=== PATIENT | female | born 1970 | race Caucasian/White ===

== ENCOUNTER 2017-06-28 08:50 | Inpatient (IN) | payer OTHER ==
[2017-06-28 10:11] VITALS: BMI 24.0
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
[2017-06-28] MEDS ORDERED: hydrOXYzine PAMOATE 50 MG CAPSULE (FP) PO PRN (11:46)
[2017-06-28] MEDS ORDERED: MAGNESIUM CITRATE 300 ML BOTTLE PO PRN (11:46)
[2017-06-28] MEDS ORDERED: P-EPHED 60MG/TRIPROLIDI 2.5MG TABLET PO PRN (11:46)
[2017-06-28] MEDS ORDERED: MENTHOL/PHENOL 1 EACH UD MM PRN (11:46)
[2017-06-28] MEDS ORDERED: guaiFENesin/D-METHORPHAN HB 10 ML UNIT-DOSE CUPS PO PRN (11:46)
[2017-06-28] MEDS ORDERED: ACETAMINOPHEN 325 MG TABLET (FP) PO PRN (11:46)
[2017-06-28] MEDS ORDERED: IBUPROFEN 400 MG TABLET (FP) PO PRN (11:46)
[2017-06-28] MEDS ORDERED: LOPERAMIDE HCL 2 MG CAPSULE PO PRN (11:46)
[2017-06-28] MEDS ORDERED: MAG HYDROX/AL HYDROX/SIMETH 30 ML UNIT-DOSE CUP PO PRN (11:46)
[2017-06-28] MEDS ORDERED: MAGNESIUM HYDROX 2400MG/30ML ORAL SUSPENSION 30 ML CUP PO PRN (11:46)
[2017-06-28] MEDS ORDERED: ALBUTEROL SO4 18 GM HFA INHALER IH PRN (11:49)
[2017-06-28 13:14] LABS: HEMATOCRIT 44.2 % (32.4-45.2); HEMOGLOBIN 14.6 GM/dL (10.7-15.3); MCH 30.2 pg (25.7-33.7); MCHC 33.1 g/dl (32.0-36.0); MEAN CELL VOLUME 91.4 fl (80-96); MEAN PLT VOLUME 9.1 fl (7.5-11.1); PLATELET COUNT 255 K/MM3 (134-434); RBC 4.84 M/mm3 (3.60-5.2); RDW 14.3 % (11.6-15.6); WHITE BLOOD COUNT 2.9 K/mm3 (4.0-10.0)
[2017-06-28 13:30] LABS: ANION GAP 11 (8-16); BILIRUBIN,TOTAL 0.3 mg/dL (0.2-1.0); BLOOD UREA NITROGEN 14 mg/dL (7-18); CALCIUM 8.8 mg/dL (8.5-10.1); CHLORIDE 102 mmol/L (98-107); CO2 27 mmol/L (21-32); CREATININE 0.8 mg/dL (0.55-1.02); GLUCOSE,RANDOM 69 mg/dL (74-106); POTASSIUM 4.3 mmol/L (3.5-5.1); SGOT/AST 17 U/L (15-37); SGPT/ALT 23 U/L (12-78); SODIUM 140 mmol/L (136-145); TOT PROT 7.6 g/dl (6.4-8.2)
[2017-06-28 13:31] LABS: ALK PHOS 58 U/L (45-117)
[2017-06-28 13:39] LABS: SICKLE CELL SCREEN NEGATIVE (NEGATIVE)
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
[2017-06-28] MEDS: BACITRACIN 0.9 GM PACKET TP SCH ×2 (14:11→21:33)
--- NOTE | 2017-06-28 15:04 | EKG ---
Test Reason : Blood Pressure : / mmHG Vent. Rate : 072 BPM Atrial Rate : 072 BPM P-R Int : 134 ms QRS Dur : 082 ms QT Int : 400 ms P-R-T Axes : 055 052 044 degrees QTc Int : 438 ms NORMAL SINUS RHYTHM SEPTAL INFARCT , AGE UNDETERMINED ABNORMAL ECG NO PREVIOUS ECGS AVAILABLE Confirmed by VÍCTOR TSE MD ([id number]) on 06/28/2017 3:03:49 PM Referred By: Confirmed By:VÍCTOR TSE MD
[2017-06-28 21:16] LABS: URINE APPEARANCE CLEAR; URINE BILIRUBIN NEGATIVE (NEGATIVE); URINE BLOOD NEGATIVE (NEGATIVE); URINE COLOR LTYELLOW; URINE GLUCOSE (UA) NEGATIVE (NEGATIVE); URINE KETONE NEGATIVE (NEGATIVE); URINE LEUK ESTERASE NEGATIVE (NEGATIVE); URINE NITRITE NEGATIVE (NEGATIVE); URINE PROTEIN NEGATIVE (NEGATIVE); URINE UROBILINOGEN NEGATIVE mg/dL (0.2-1.0)
[2017-06-28] MEDS: OLANZapine 5 MG TABLET PO SCH (21:33)
[2017-06-28] MEDS: THIAMINE HCL 100 MG TABLET (FP) PO SCH (21:33)
[2017-06-28] MEDS: AMOX TR/POT CLAV 875MG/125MG TABLETS (FP) PO SCH (21:33)
[2017-06-28] MEDS: MELATONIN 5 MG TABLETS PO SCH (21:33)
[2017-06-29] MEDS: AMOX TR/POT CLAV 875MG/125MG TABLETS (FP) PO SCH ×2 (09:19→21:42)
[2017-06-29] MEDS: PRENATAL VITAMINS W/ FOLIC ACID TABLET (FP) PO SCH (09:19)
[2017-06-29] MEDS: BACITRACIN 0.9 GM PACKET TP SCH ×2 (09:19→21:42)
[2017-06-29 12:17] LABS: RPR REACTIVE 1:1 (NONREACTIVE)
--- NOTE | 2017-06-29 12:17 | PN ---
[facility] Progress Note Note: called received from lab re: RPR result = 1:1. Patient with hx of Syphilis and gonorrhea .
[2017-06-29 12:23] LABS: TREPONEMA ANTIBODY REACTIVE (NONREACTIVE)
[2017-06-29] MEDS: MELATONIN 5 MG TABLETS PO SCH (21:42)
[2017-06-29] MEDS: OLANZapine 5 MG TABLET PO SCH (21:42)
[2017-06-29] MEDS: THIAMINE HCL 100 MG TABLET (FP) PO SCH (21:42)
[2017-06-30] MEDS: PRENATAL VITAMINS W/ FOLIC ACID TABLET (FP) PO SCH (10:40)
[2017-06-30] MEDS: AMOX TR/POT CLAV 875MG/125MG TABLETS (FP) PO SCH ×2 (10:40→21:46)
[2017-06-30] MEDS: BACITRACIN 0.9 GM PACKET TP SCH ×2 (10:41→21:46)
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
[2017-06-30] MEDS ORDERED: PT OWN MED DRAWER 7, Y5N ONE (15:55)
[2017-06-30] MEDS: MELATONIN 5 MG TABLETS PO SCH (21:46)
[2017-06-30] MEDS: THIAMINE HCL 100 MG TABLET (FP) PO SCH (21:46)
[2017-06-30] MEDS: OLANZapine 5 MG TABLET PO SCH (21:46)
[2017-06-30] MEDS: TRIAMCINOLONE ACET 0.025% OINTMENT 15 GM TUBE TP SCH (21:47)
[2017-07-01] MEDS ORDERED: PT OWN MED DRAWER 7, Y5N ONE ×2 (08:18→20:14)
[2017-07-01] MEDS: TRIAMCINOLONE ACET 0.025% OINTMENT 15 GM TUBE TP SCH ×2 (09:25→21:09)
[2017-07-01] MEDS: AMOX TR/POT CLAV 875MG/125MG TABLETS (FP) PO SCH ×2 (09:25→21:10)
[2017-07-01] MEDS: BACITRACIN 0.9 GM PACKET TP SCH ×2 (09:25→21:09)
[2017-07-01] MEDS: PRENATAL VITAMINS W/ FOLIC ACID TABLET (FP) PO SCH (09:26)
[2017-07-01] MEDS: COLLOIDAL OATMEAL 1 BAR EACH TP PRN (13:08)
[2017-07-01] MEDS: MELATONIN 5 MG TABLETS PO SCH (21:10)
[2017-07-01] MEDS: THIAMINE HCL 100 MG TABLET (FP) PO SCH (21:10)
[2017-07-01] MEDS: OLANZapine 5 MG TABLET PO SCH (21:10)
[2017-07-02] MEDS ORDERED: PT OWN MED DRAWER 7, Y5N ONE (07:33)
[2017-07-02] MEDS: PRENATAL VITAMINS W/ FOLIC ACID TABLET (FP) PO SCH (10:17)
[2017-07-02] MEDS: AMOX TR/POT CLAV 875MG/125MG TABLETS (FP) PO SCH ×2 (10:17→21:06)
[2017-07-02] MEDS: TRIAMCINOLONE ACET 0.025% OINTMENT 15 GM TUBE TP SCH ×2 (10:17→21:06)
[2017-07-02] MEDS: BACITRACIN 0.9 GM PACKET TP SCH ×2 (10:17→21:06)
[2017-07-02] MEDS: OLANZapine 5 MG TABLET PO SCH (21:06)
[2017-07-02] MEDS: THIAMINE HCL 100 MG TABLET (FP) PO SCH (21:06)
[2017-07-02] MEDS: MELATONIN 5 MG TABLETS PO SCH (21:07)
[2017-07-03] MEDS ORDERED: PT OWN MED DRAWER 7, Y5N ONE ×2 (07:58→11:15)
[2017-07-03] MEDS: BACITRACIN 0.9 GM PACKET TP SCH ×2 (09:52→21:13)
[2017-07-03] MEDS: AMOX TR/POT CLAV 875MG/125MG TABLETS (FP) PO SCH ×2 (09:52→21:13)
[2017-07-03] MEDS: PRENATAL VITAMINS W/ FOLIC ACID TABLET (FP) PO SCH (09:52)
[2017-07-03] MEDS: TRIAMCINOLONE ACET 0.025% OINTMENT 15 GM TUBE TP SCH ×2 (10:46→21:14)
[2017-07-03] MEDS: THIAMINE HCL 100 MG TABLET (FP) PO SCH (21:13)
[2017-07-03] MEDS: MELATONIN 5 MG TABLETS PO SCH (21:13)
[2017-07-03] MEDS: OLANZapine 5 MG TABLET PO SCH (21:13)
[2017-07-04] MEDS ORDERED: PT OWN MED DRAWER 7, Y5N ONE (09:14)
[2017-07-04] MEDS: TRIAMCINOLONE ACET 0.025% OINTMENT 15 GM TUBE TP SCH ×2 (10:00→21:05)
[2017-07-04] MEDS: BACITRACIN 0.9 GM PACKET TP SCH ×2 (10:00→21:04)
[2017-07-04] MEDS: AMOX TR/POT CLAV 875MG/125MG TABLETS (FP) PO SCH ×2 (10:01→21:04)
[2017-07-04] MEDS: PRENATAL VITAMINS W/ FOLIC ACID TABLET (FP) PO SCH (10:01)
--- NOTE | 2017-07-04 16:59 | PN ---
[facility] Progress Note Note: Patient currently on Augmentin, c/o of white vaginal discharge Last Vital Signs Temp Pulse Resp BP Pulse Ox 97.7 F 76 18 118/78 07/04/17 07:01 07/04/17 07:01 07/04/17 07:01 07/04/17 07:01 Laboratory Last Values WBC 2.9 K/mm3 (4.0-10.0) L 06/28/17 11:50 RBC 4.84 M/mm3 (3.60-5.2) 06/28/17 11:50 Hgb 14.6 GM/dL (10.7-15.3) 06/28/17 11:50 Hct 44.2 % (32.4-45.2) 06/28/17 11:50 MCV 91.4 fl (80-96) 06/28/17 11:50 MCH 30.2 pg (25.7-33.7) 06/28/17 11:50 MCHC 33.1 g/dl (32.0-36.0) 06/28/17 11:50 RDW 14.3 % (11.6-15.6) 06/28/17 11:50 Plt Count 255 K/MM3 (134-434) 06/28/17 11:50 MPV 9.1 fl (7.5-11.1) 06/28/17 11:50 Sickle Cell Screen Negative (NEGATIVE) 06/28/17 11:50 Sodium 140 mmol/L (136-145) 06/28/17 11:50 Potassium 4.3 mmol/L (3.5-5.1) 06/28/17 11:50 Chloride 102 mmol/L (98-107) 06/28/17 11:50 Carbon Dioxide 27 mmol/L (21-32) 06/28/17 11:50 Anion Gap 11 (8-16) 06/28/17 11:50 BUN 14 mg/dL (7-18) 06/28/17 11:50 Creatinine 0.8 mg/dL (0.55-1.02) 06/28/17 11:50 Creat Clearance w eGFR > 60 (>60) 06/28/17 11:50 Random Glucose 69 mg/dL (74-106) L 06/28/17 11:50 Calcium 8.8 mg/dL (8.5-10.1) 06/28/17 11:50 Total Bilirubin 0.3 mg/dL (0.2-1.0) 06/28/17 11:50 AST 17 U/L (15-37) 06/28/17 11:50 ALT 23 U/L (12-78) 06/28/17 11:50 Alkaline Phosphatase 58 U/L (45-117) 06/28/17 11:50 Total Protein 7.6 g/dl (6.4-8.2) 06/28/17 11:50 Albumin 4.0 g/dl (3.4-5.0) 06/28/17 11:50 Urine Color Ltyellow 06/28/17 20:00 Urine Appearance Clear 06/28/17 20:00 Urine pH 7.0 (5.0-8.0) 06/28/17 20:00 Ur Specific [place] 1.014 (1.001-1.035) 06/28/17 20:00 Urine Protein Negative (NEGATIVE) 06/28/17 20:00 Urine Glucose (UA) Negative (NEGATIVE) 06/28/17 20:00 Urine Ketones Negative (NEGATIVE) 06/28/17 20:00 Urine Blood Negative (NEGATIVE) 06/28/17 20:00 Urine Nitrite Negative (NEGATIVE) 06/28/17 20:00 Urine Bilirubin Negative (NEGATIVE) 06/28/17 20:00 Urine Urobilinogen Negative mg/dL (0.2-1.0) 06/28/17 20:00 Ur Leukocyte Esterase Negative (NEGATIVE) 06/28/17 20:00 RPR Titer Reactive 1:1 (NONREACTIVE) H 06/28/17 11:50 T.pallidum Ab (MHA) Reactive (NONREACTIVE) 06/28/17 11:50 Hep C Ab Diagnostic <0.1 s/co ratio (0.0-0.9) 06/28/17 11:50 HIV 1&2 Antibody Screen Negative 07/03/17 07:00 HIV P24 Antigen Negative 07/03/17 07:00 plan: One time order of diflucan 150 mg Increase fluids Continue to monitor
[2017-07-04] MEDS ORDERED: FLUCONAZOLE 50 MG TABLET PO ONE (17:30)
[2017-07-04] MEDS: OLANZapine 5 MG TABLET PO SCH (21:04)
[2017-07-04] MEDS: THIAMINE HCL 100 MG TABLET (FP) PO SCH (21:04)
[2017-07-04] MEDS: MELATONIN 5 MG TABLETS PO SCH (21:04)
[2017-07-05] MEDS ORDERED: PT OWN MED DRAWER 7, Y5N ONE (08:27)
[2017-07-05] MEDS: AMOX TR/POT CLAV 875MG/125MG TABLETS (FP) PO SCH (10:04)
[2017-07-05] MEDS: TRIAMCINOLONE ACET 0.025% OINTMENT 15 GM TUBE TP SCH ×2 (10:04→21:08)
[2017-07-05] MEDS: BACITRACIN 0.9 GM PACKET TP SCH ×2 (10:04→21:07)
[2017-07-05] MEDS: PRENATAL VITAMINS W/ FOLIC ACID TABLET (FP) PO SCH (10:04)
[2017-07-05] MEDS: THIAMINE HCL 100 MG TABLET (FP) PO SCH (21:06)
[2017-07-05] MEDS: OLANZapine 5 MG TABLET PO SCH (21:07)
[2017-07-05] MEDS: MELATONIN 5 MG TABLETS PO SCH (21:08)
[2017-07-06] MEDS ORDERED: PT OWN MED DRAWER 7, Y5N ONE (08:28)
[2017-07-06] MEDS: PRENATAL VITAMINS W/ FOLIC ACID TABLET (FP) PO SCH (09:35)
[2017-07-06] MEDS: TRIAMCINOLONE ACET 0.025% OINTMENT 15 GM TUBE TP SCH ×2 (09:35→21:13)
[2017-07-06] MEDS: BACITRACIN 0.9 GM PACKET TP SCH ×2 (09:36→21:11)
[2017-07-06] MEDS: OLANZapine 5 MG TABLET PO SCH (21:11)
[2017-07-06] MEDS: THIAMINE HCL 100 MG TABLET (FP) PO SCH (21:11)
[2017-07-06] MEDS: MELATONIN 5 MG TABLETS PO SCH (21:12)
[2017-07-07] MEDS ORDERED: PT OWN MED DRAWER 7, Y5N ONE (09:03)
[2017-07-07] MEDS: BACITRACIN 0.9 GM PACKET TP SCH ×2 (10:15→21:07)
[2017-07-07] MEDS: PRENATAL VITAMINS W/ FOLIC ACID TABLET (FP) PO SCH (10:15)
[2017-07-07] MEDS: TRIAMCINOLONE ACET 0.025% OINTMENT 15 GM TUBE TP SCH ×2 (10:16→21:08)
[2017-07-07] MEDS: OLANZapine 5 MG TABLET PO SCH (21:07)
[2017-07-07] MEDS: MELATONIN 5 MG TABLETS PO SCH (21:07)
[2017-07-07] MEDS: THIAMINE HCL 100 MG TABLET (FP) PO SCH (21:07)
[2017-07-07] MEDS: COLLOIDAL OATMEAL 1 BAR EACH TP PRN (21:09)
[2017-07-08] MEDS ORDERED: PT OWN MED DRAWER 7, Y5N ONE (09:07)
[2017-07-08] MEDS: PRENATAL VITAMINS W/ FOLIC ACID TABLET (FP) PO SCH (10:00)
[2017-07-08] MEDS: TRIAMCINOLONE ACET 0.025% OINTMENT 15 GM TUBE TP SCH ×2 (10:00→21:21)
[2017-07-08] MEDS: BACITRACIN 0.9 GM PACKET TP SCH ×2 (10:00→21:20)
[2017-07-08] MEDS: MELATONIN 5 MG TABLETS PO SCH (21:20)
[2017-07-08] MEDS: OLANZapine 5 MG TABLET PO SCH (21:20)
[2017-07-08] MEDS: THIAMINE HCL 100 MG TABLET (FP) PO SCH (21:20)
[2017-07-09] MEDS: PRENATAL VITAMINS W/ FOLIC ACID TABLET (FP) PO SCH (09:47)
[2017-07-09] MEDS: TRIAMCINOLONE ACET 0.025% OINTMENT 15 GM TUBE TP SCH ×2 (09:47→21:13)
[2017-07-09] MEDS: BACITRACIN 0.9 GM PACKET TP SCH ×2 (09:47→21:12)
[2017-07-09] MEDS: OLANZapine 5 MG TABLET PO SCH (21:12)
[2017-07-09] MEDS: THIAMINE HCL 100 MG TABLET (FP) PO SCH (21:13)
[2017-07-09] MEDS: MELATONIN 5 MG TABLETS PO SCH (21:13)
[2017-07-09] MEDS ORDERED: PT OWN MED DRAWER 7, Y5N ONE (23:08)
[2017-07-10] MEDS ORDERED: PT OWN MED DRAWER 7, Y5N ONE (07:55)
[2017-07-10] MEDS: TRIAMCINOLONE ACET 0.025% OINTMENT 15 GM TUBE TP SCH ×2 (09:50→21:11)
[2017-07-10] MEDS: PRENATAL VITAMINS W/ FOLIC ACID TABLET (FP) PO SCH (09:50)
[2017-07-10] MEDS: BACITRACIN 0.9 GM PACKET TP SCH ×2 (09:50→21:11)
[2017-07-10] MEDS: THIAMINE HCL 100 MG TABLET (FP) PO SCH (21:10)
[2017-07-10] MEDS: OLANZapine 5 MG TABLET PO SCH (21:10)
[2017-07-10] MEDS: MELATONIN 5 MG TABLETS PO SCH (21:10)
[2017-07-11 07:08] VITALS: PULSE 76
[2017-07-11] MEDS ORDERED: PT OWN MED DRAWER 7, Y5N ONE (08:32)
[2017-07-11] MEDS: TRIAMCINOLONE ACET 0.025% OINTMENT 15 GM TUBE TP SCH ×2 (10:11→21:06)
[2017-07-11] MEDS: BACITRACIN 0.9 GM PACKET TP SCH ×2 (10:12→21:06)
[2017-07-11] MEDS: PRENATAL VITAMINS W/ FOLIC ACID TABLET (FP) PO SCH (10:12)
[2017-07-11] MEDS: THIAMINE HCL 100 MG TABLET (FP) PO SCH (21:05)
[2017-07-11] MEDS: OLANZapine 5 MG TABLET PO SCH (21:05)
[2017-07-11] MEDS: MELATONIN 5 MG TABLETS PO SCH (21:05)
[2017-07-12 07:09] VITALS: BP 116/80; TEMP 97.8
[2017-07-12] MEDS ORDERED: PT OWN MED DRAWER 7, Y5N ONE (08:44)
--- NOTE | 2017-07-12 09:14 | PN ---
Psychiatric Progress Note Vital Signs: Vital Signs Period Temp Pulse Resp BP Sys/[place] Pulse Ox Last 24 Hr 97.8 F 76 18-18 116/80 Date of Session: 07/12/17 Chief Complaint:: Discharge visit HPI: Patient addressed Alcohol,Cocaine and Cannabis dependence comorbid with PTSD,Bipolar disorder. ROS: unremarkable Current Medications: Active Medications Generic Name Dose Route Start Last Admin Trade Name Freq PRN Reason Stop Dose Admin Acetaminophen 650 mg 06/28/17 11:46 Tylenol - PO Q4H PRN FEVER Al Hydroxide/Mg Hydroxide 30 ml 06/28/17 11:46 07/04/17 21:06 Mylanta Oral Suspension - PO 30 ml Q6H PRN Administration DYSPEPSIA Albuterol Sulfate 2 puff 06/28/17 11:49 Ventolin Hfa Inhaler - IH Q4H PRN SHORT OF BREATH/WHEEZING Bacitracin 0.9 gm 06/28/17 12:00 07/11/17 21:06 Bacitracin - TP Not Given BID ED Colloidal Oatmeal 1 applic 06/30/17 14:52 07/07/17 21:09 Aveeno Soap - TP 1 bar DAILY PRN Administration HYGEINE Eucalyptus/Menthol/Phenol/Sorbitol 1 each 06/28/17 11:46 Cepastat Lozenge - MM Q4H PRN SORE THROAT Guaifenesin 10 ml 06/28/17 11:46 Robitussin Dm - PO Q6H PRN COUGH Hydroxyzine Pamoate 50 mg 06/28/17 11:46 Vistaril - PO Q4H PRN AGITATION Ibuprofen 400 mg 06/28/17 11:46 Motrin - PO Q6H PRN Pain level 4-6 Loperamide HCl 4 mg 06/28/17 11:46 Imodium - PO Q6H PRN DIARRHEA Magnesium Citrate 300 ml 06/28/17 11:46 Citroma - PO Q48H PRN CONSTIPATION Magnesium Hydroxide 30 ml 06/28/17 11:46 Milk Of Magnesia - PO DAILY PRN CONSTIPATION Melatonin 5 mg 06/28/17 22:00 07/11/17 21:05 Melatonin PO 5 mg HS ED Administration Olanzapine 5 mg 06/28/17 22:00 07/11/17 21:05 Zyprexa - PO 5 mg HS ED Administration Multivit/Folic Acid/Iron 1 tab 06/29/17 10:00 07/11/17 10:12 Vitamins (Sjr) - PO 1 tab DAILY ED Administration Pseudoephedrine/Triprolidine 1 combo 06/28/17 11:46 Actifed - PO TID PRN NASAL CONGESTION Thiamine HCl 100 mg 06/28/17 22:00 07/11/17 21:05 Vitamin B1 - PO 100 mg HS ED Administration Triamcinolone Acetonide 1 applic 06/30/17 22:00 07/11/17 21:06 Aristocort 0.025% Ointment - TP Not Given BID ED Current Side Effect: No Lab tests ordered: No Lab tests reviewed: Yes Provider note:: Patient completed this program today.She has met her treatment goals and will continue to address her issues on outpatient basis at [facility].Patient reports finding that current medications :Zyprexa 5 mg po daily help to cope with sleeping difficulties,anxiety,mood instability.Scrpit for 30 days provided. Therapy provided focusing on relapse prevention.Coping skills,support utilization has been discussed with the patient as well as other resourses to maintain recovery. Patient is stable for discharge today. Total face to face time:: 30 Mental Status Exam - Mental Status Exam Alert and Oriented to: Time, Place, Person Cognitive Function: Grossly Intact Patient Appearance: Well Groomed Mood: Hopeful, Euthymic Affect: Appropriate, Mood Congruent Patient Behavior: Cooperative Speech Pattern: Clear Voice Loudness: Normal Thought Process: Goal Oriented Thought Disorder: Not Present Hallucinations: Denies Suicidal Ideation: Denies Homicidal Ideation: Denies Insight/Judgement: Fair Sleep: Fair Appetite: Good Muscle strength/Tone: Normal Gait/Station: Normal Psychiatric Treatment Plan - Problem List (1) Alcohol dependence Current Visit: Yes (2) Bipolar disorder Current Visit: Yes (3) Cannabis dependence Current Visit: Yes (4) Cocaine dependence Current Visit: Yes (5) Nicotine dependence Current Visit: Yes (6) PTSD (post-traumatic stress disorder) Current Visit: Yes
== END 2017-07-12 09:55 | disposition home or self-care (01) | DRG 772 ==
LOC: YASAS 08:50 → Y3E 11:36
PROVIDERS: ADMIT Psychiatry & Neurology Psychiatry; ATTEND Psychiatry & Neurology Psychiatry
PROC: HZ42ZZZ Group Counseling for Substance Abuse Treatment, Cognitive-Behavioral (ICD-10-PCS; principal; 2017-06-28)
DX: F10.230 Alcohol dependence with withdrawal, uncomplicated (principal); F14.20 Cocaine dependence, uncomplicated; F12.20 Cannabis dependence, uncomplicated; F17.210 Nicotine dependence, cigarettes, uncomplicated; F31.9 Bipolar disorder, unspecified; F43.10 Post-traumatic stress disorder, unspecified
CPT/HCPCS: 36415; 80053; 81003; 85027; 85660; 86593; 86780; 87389; 93005; 93010

== ENCOUNTER 2021-04-19 12:04 | Inpatient (IN) | payer OTHER ==
[2021-04-19 12:22] VITALS: BMI 24.5
[2021-04-19] MEDS ORDERED: ONDANSETRON *ODT* 4 MG TABLET SL PRN (15:47)
[2021-04-19] MEDS ORDERED: NICOTINE 10 MG CARTRIDGE (INHALER) IH PRN (15:47)
[2021-04-19] MEDS ORDERED: ACETAMINOPHEN 325 MG TABLET (FP) PO PRN ×2 (15:47)
[2021-04-19] MEDS ORDERED: IBUPROFEN 400 MG TABLET (FP) PO PRN (15:47)
[2021-04-19] MEDS ORDERED: MAG HYDROX/AL HYDROX/SIMETH 30 ML UNIT-DOSE CUP PO PRN (15:47)
[2021-04-19] MEDS ORDERED: BISMUTH SUBSALICYLATE 524 MG/30 ML PO PRN (15:47)
[2021-04-19] MEDS ORDERED: MAGNESIUM HYDROX 2400MG/30ML ORAL SUSPENSION 30 ML CUP PO PRN (15:47)
[2021-04-19] MEDS ORDERED: MAGNESIUM CITRATE 300 ML BOTTLE PO PRN (15:47)
[2021-04-19] MEDS ORDERED: MENTHOL/PHENOL 1 EACH UD MM PRN (15:47)
[2021-04-19] MEDS: hydrOXYzine PAMOATE 25 MG CAPSULE (FP) PO SCH ×2 (20:27→23:00)
[2021-04-19] MEDS: THIAMINE HCL 100 MG TABLET (FP) PO SCH (23:00)
[2021-04-19] MEDS: MELATONIN 5 MG TABLETS PO SCH (23:00)
[2021-04-20] MEDS: hydrOXYzine PAMOATE 25 MG CAPSULE (FP) PO SCH ×5 (06:25→22:13)
[2021-04-20] MEDS ORDERED: diazePAM 5 MG TABLET PO PRN (10:18)
[2021-04-20 10:47] LABS: HEMATOCRIT 38.7 % (32.4-45.2); HEMOGLOBIN 12.5 GM/dL (10.7-15.3); MCH 28.7 pg (25.7-33.7); MCHC 32.4 g/dl (32.0-36.0); MEAN CELL VOLUME 88.5 fl (80-96); MEAN PLT VOLUME 8.5 fl (7.5-11.1); PLATELET COUNT 217 10^3/uL (134-434); RBC 4.37 M/mm3 (3.60-5.2); RDW 14.7 % (11.6-15.6); WHITE BLOOD COUNT 2.3 K/mm3 (4.0-10.0)
[2021-04-20] MEDS: PRENATAL VITAMINS W/ FOLIC ACID TABLET (FP) PO SCH (10:51)
[2021-04-20] MEDS: diazePAM 5 MG TABLET PO SCH ×3 (10:51→22:15)
[2021-04-20 10:54] LABS: CREATININE 0.7 mg/dL (0.55-1.3)
[2021-04-20 10:55] LABS: BILIRUBIN,TOTAL 0.3 mg/dL (0.2-1); TOT PROT 6.7 g/dl (6.4-8.2)
[2021-04-20 10:57] LABS: CALCIUM 8.7 mg/dL (8.5-10.1)
[2021-04-20 10:58] LABS: BLOOD UREA NITROGEN 8.7 mg/dL (7-18)
[2021-04-20] MEDS: MELATONIN 5 MG TABLETS PO SCH (22:13)
[2021-04-20] MEDS: THIAMINE HCL 100 MG TABLET (FP) PO SCH (22:13)
[2021-04-20] MEDS: OLANZapine 5 MG TABLET PO SCH (22:32)
[2021-04-21] MEDS: diazePAM 5 MG TABLET PO SCH ×4 (05:21→22:43)
[2021-04-21] MEDS: hydrOXYzine PAMOATE 25 MG CAPSULE (FP) PO SCH ×5 (05:21→22:43)
[2021-04-21] MEDS: PRENATAL VITAMINS W/ FOLIC ACID TABLET (FP) PO SCH (10:13)
[2021-04-21] MEDS: METHOCARBAMOL 500 MG TABLET PO PRN (18:11)
[2021-04-21] MEDS: THIAMINE HCL 100 MG TABLET (FP) PO SCH (22:43)
[2021-04-21] MEDS: OLANZapine 5 MG TABLET PO SCH (22:43)
[2021-04-21] MEDS: MELATONIN 5 MG TABLETS PO SCH (22:43)
[2021-04-22] MEDS: hydrOXYzine PAMOATE 25 MG CAPSULE (FP) PO SCH ×5 (06:17→21:59)
[2021-04-22] MEDS: diazePAM 5 MG TABLET PO SCH ×3 (06:18→21:59)
[2021-04-22] MEDS: PRENATAL VITAMINS W/ FOLIC ACID TABLET (FP) PO SCH (10:28)
[2021-04-22] MEDS: THIAMINE HCL 100 MG TABLET (FP) PO SCH (21:59)
[2021-04-22] MEDS: OLANZapine 5 MG TABLET PO SCH (21:59)
[2021-04-22] MEDS: MELATONIN 5 MG TABLETS PO SCH (22:01)
[2021-04-23] MEDS: hydrOXYzine PAMOATE 25 MG CAPSULE (FP) PO SCH ×5 (05:45→22:34)
[2021-04-23] MEDS: diazePAM 5 MG TABLET PO SCH ×2 (05:46→18:17)
[2021-04-23] MEDS: PRENATAL VITAMINS W/ FOLIC ACID TABLET (FP) PO SCH (10:25)
[2021-04-23] MEDS: THIAMINE HCL 100 MG TABLET (FP) PO SCH (22:34)
[2021-04-23] MEDS: MELATONIN 5 MG TABLETS PO SCH (22:34)
[2021-04-23] MEDS: OLANZapine 5 MG TABLET PO SCH (22:34)
[2021-04-24] MEDS: hydrOXYzine PAMOATE 25 MG CAPSULE (FP) PO SCH ×3 (05:57→13:55)
[2021-04-24] MEDS: METHOCARBAMOL 500 MG TABLET PO PRN (05:57)
[2021-04-24] MEDS ORDERED: diazePAM 5 MG TABLET PO ONE (06:00)
[2021-04-24] MEDS: PRENATAL VITAMINS W/ FOLIC ACID TABLET (FP) PO SCH (10:35)
[2021-04-24 13:13] VITALS: BP 114/81; PULSE 93; TEMP 96.9
== END 2021-04-24 14:51 | disposition other institution (70) | DRG 773 ==
LOC: YASAS 12:04 → Y3N 19:20 → UNDOADMIN 19:20 → Y3N 04-21 18:48
PROVIDERS: ADMIT Allergy & Immunology; ATTEND Allergy & Immunology
PROC: HZ2ZZZZ Detoxification Services for Substance Abuse Treatment (ICD-10-PCS; principal; 2021-04-19)
DX: F11.23 Opioid dependence with withdrawal (principal); F14.20 Cocaine dependence, uncomplicated; F10.20 Alcohol dependence, uncomplicated; F12.20 Cannabis dependence, uncomplicated; F17.210 Nicotine dependence, cigarettes, uncomplicated; F20.9 Schizophrenia, unspecified; F31.9 Bipolar disorder, unspecified; F19.24 Other psychoactive substance dependence with psychoactive substance-induced mood disorder; F43.10 Post-traumatic stress disorder, unspecified; M54.50 Low back pain, unspecified; G89.29 Other chronic pain; Z62.810 Personal history of physical and sexual abuse in childhood; Z86.19 Personal history of other infectious and parasitic diseases; Z56.0 Unemployment, unspecified; Z59.00 Homelessness unspecified
CPT/HCPCS: 36415; 80053; 85027; 86593; 86780; 93005; 93010; C9803; U0003; U0005

== ENCOUNTER 2021-04-24 14:31 | Inpatient (IN) | payer OTHER ==
[2021-04-24 19:22] VITALS: BMI 24.7
[2021-04-24] MEDS ORDERED: LOPERAMIDE HCL 2 MG CAPSULE PO PRN (19:51)
[2021-04-24] MEDS ORDERED: P-EPHED 60MG/TRIPROLIDI 2.5MG TABLET PO PRN (19:51)
[2021-04-24] MEDS ORDERED: ACETAMINOPHEN 325 MG TABLET (FP) PO PRN (19:51)
[2021-04-24] MEDS ORDERED: MENTHOL/PHENOL 1 EACH UD MM PRN (19:51)
[2021-04-24] MEDS ORDERED: MAGNESIUM HYDROX 2400MG/30ML ORAL SUSPENSION 30 ML CUP PO PRN (19:51)
[2021-04-24] MEDS ORDERED: IBUPROFEN 400 MG TABLET (FP) PO PRN (19:51)
[2021-04-24] MEDS ORDERED: NICOTINE POLACRILEX 2 MG GUM BUC PRN (19:51)
[2021-04-24] MEDS ORDERED: guaiFENesin 200 MG/10 ML 10 ML UNIT-DOSE CUPS PO PRN (19:51)
[2021-04-24] MEDS ORDERED: MAGNESIUM CITRATE 300 ML BOTTLE PO PRN (19:51)
[2021-04-24] MEDS ORDERED: MAG HYDROX/AL HYDROX/SIMETH 30 ML UNIT-DOSE CUP PO PRN (19:51)
[2021-04-24] MEDS: OLANZapine 5 MG TABLET PO SCH (21:18)
[2021-04-24] MEDS: MELATONIN 5 MG TABLETS PO SCH (21:18)
[2021-04-24] MEDS: hydrOXYzine PAMOATE 25 MG CAPSULE (FP) PO SCH (21:18)
[2021-04-24] MEDS: THIAMINE HCL 100 MG TABLET (FP) PO SCH (21:18)
[2021-04-25] MEDS: hydrOXYzine PAMOATE 25 MG CAPSULE (FP) PO SCH ×5 (06:53→21:53)
[2021-04-25] MEDS: NICOTINE 10 MG CARTRIDGE (INHALER) IH PRN ×2 (06:55→20:42)
[2021-04-25] MEDS: PRENATAL VITAMINS W/ FOLIC ACID TABLET (FP) PO SCH (10:26)
[2021-04-25] MEDS: NICOTINE 7 MG/24 HOURS TOPICAL PATCH TD SCH (10:26)
[2021-04-25] MEDS: MELATONIN 5 MG TABLETS PO SCH (21:53)
[2021-04-25] MEDS: THIAMINE HCL 100 MG TABLET (FP) PO SCH (21:53)
[2021-04-25] MEDS: OLANZapine 5 MG TABLET PO SCH (21:53)
[2021-04-26] MEDS: hydrOXYzine PAMOATE 25 MG CAPSULE (FP) PO SCH ×5 (06:40→21:58)
[2021-04-26] MEDS: PRENATAL VITAMINS W/ FOLIC ACID TABLET (FP) PO SCH (10:35)
[2021-04-26] MEDS: NICOTINE 7 MG/24 HOURS TOPICAL PATCH TD SCH (10:35)
[2021-04-26] MEDS: OLANZapine 10 MG TABLET PO SCH (21:58)
[2021-04-26] MEDS: THIAMINE HCL 100 MG TABLET (FP) PO SCH (21:58)
[2021-04-26] MEDS ORDERED: SUVOREXANT 10 MG TABLET PO PRN (22:00)
[2021-04-27] MEDS: hydrOXYzine PAMOATE 25 MG CAPSULE (FP) PO SCH ×5 (06:25→21:31)
[2021-04-27] MEDS: PRENATAL VITAMINS W/ FOLIC ACID TABLET (FP) PO SCH (10:25)
[2021-04-27] MEDS: NICOTINE 7 MG/24 HOURS TOPICAL PATCH TD SCH (10:25)
[2021-04-27] MEDS: NICOTINE 10 MG CARTRIDGE (INHALER) IH PRN (10:25)
[2021-04-27] MEDS: OLANZapine 10 MG TABLET PO SCH (21:31)
[2021-04-27] MEDS: THIAMINE HCL 100 MG TABLET (FP) PO SCH (21:31)
[2021-04-28] MEDS: hydrOXYzine PAMOATE 25 MG CAPSULE (FP) PO SCH ×5 (06:15→21:35)
[2021-04-28] MEDS: PRENATAL VITAMINS W/ FOLIC ACID TABLET (FP) PO SCH (10:31)
[2021-04-28] MEDS: NICOTINE 10 MG CARTRIDGE (INHALER) IH PRN ×2 (10:32→17:51)
[2021-04-28] MEDS: NICOTINE 7 MG/24 HOURS TOPICAL PATCH TD SCH (10:32)
[2021-04-28] MEDS ORDERED: COLLOIDAL OATMEAL 1 BAR EACH TP PRN (10:47)
[2021-04-28 17:59] LABS: EPI CELLS 31 /uL (0-25.1); HYALINE CASTS 1 /uL (0-3.1); PH,URINE 6.5 (5.0-8.0); URINE APPEARANCE CLEAR; URINE BACTERIA 1191 /uL (0-1359); URINE BILIRUBIN NEGATIVE (NEGATIVE); URINE COLOR YELLOW; URINE GLUCOSE (UA) NEGATIVE (NEGATIVE); URINE KETONE NEGATIVE (NEGATIVE); URINE LEUK ESTERASE 2+ (NEGATIVE); URINE NITRITE NEGATIVE (NEGATIVE); URINE PROTEIN NEGATIVE (NEGATIVE); URINE RBC 8 /uL (0-23.9); URINE UROBILINOGEN 0.2 mg/dL (0.2-1.0); URINE WBC 26 /uL (0-25.8)
[2021-04-28] MEDS: THIAMINE HCL 100 MG TABLET (FP) PO SCH (21:35)
[2021-04-28] MEDS: OLANZapine 10 MG TABLET PO SCH (21:35)
[2021-04-29] MEDS: hydrOXYzine PAMOATE 25 MG CAPSULE (FP) PO SCH ×5 (06:51→21:23)
[2021-04-29] MEDS: PRENATAL VITAMINS W/ FOLIC ACID TABLET (FP) PO SCH (09:40)
[2021-04-29] MEDS: NICOTINE 10 MG CARTRIDGE (INHALER) IH PRN (09:40)
[2021-04-29] MEDS: NICOTINE 7 MG/24 HOURS TOPICAL PATCH TD SCH (09:42)
[2021-04-29] MEDS: OLANZapine 10 MG TABLET PO SCH (21:23)
[2021-04-29] MEDS: THIAMINE HCL 100 MG TABLET (FP) PO SCH (21:23)
[2021-04-29] MEDS ORDERED: SUVOREXANT 10 MG TABLET PO PRN (22:00)
[2021-04-30] MEDS: hydrOXYzine PAMOATE 25 MG CAPSULE (FP) PO SCH ×5 (06:14→21:33)
[2021-04-30] MEDS: PRENATAL VITAMINS W/ FOLIC ACID TABLET (FP) PO SCH (11:19)
[2021-04-30] MEDS: NICOTINE 7 MG/24 HOURS TOPICAL PATCH TD SCH (11:19)
[2021-04-30] MEDS: OLANZapine 10 MG TABLET PO SCH (21:33)
[2021-04-30] MEDS: THIAMINE HCL 100 MG TABLET (FP) PO SCH (21:33)
[2021-05-01] MEDS: hydrOXYzine PAMOATE 25 MG CAPSULE (FP) PO SCH ×5 (06:11→21:49)
[2021-05-01] MEDS: NICOTINE 7 MG/24 HOURS TOPICAL PATCH TD SCH (10:29)
[2021-05-01] MEDS: PRENATAL VITAMINS W/ FOLIC ACID TABLET (FP) PO SCH (10:30)
[2021-05-01] MEDS: NICOTINE 10 MG CARTRIDGE (INHALER) IH PRN (19:08)
[2021-05-01] MEDS: OLANZapine 10 MG TABLET PO SCH (21:49)
[2021-05-01] MEDS: THIAMINE HCL 100 MG TABLET (FP) PO SCH (21:49)
[2021-05-02] MEDS: hydrOXYzine PAMOATE 25 MG CAPSULE (FP) PO SCH ×5 (07:04→21:25)
[2021-05-02] MEDS: PRENATAL VITAMINS W/ FOLIC ACID TABLET (FP) PO SCH (09:36)
[2021-05-02] MEDS: NICOTINE 7 MG/24 HOURS TOPICAL PATCH TD SCH (09:38)
[2021-05-02] MEDS: NICOTINE 10 MG CARTRIDGE (INHALER) IH PRN (21:25)
[2021-05-02] MEDS: OLANZapine 10 MG TABLET PO SCH (21:25)
[2021-05-02] MEDS: THIAMINE HCL 100 MG TABLET (FP) PO SCH (21:25)
[2021-05-02] MEDS ORDERED: SUVOREXANT 10 MG TABLET PO PRN (22:00)
[2021-05-03] MEDS: hydrOXYzine PAMOATE 25 MG CAPSULE (FP) PO SCH ×2 (06:43→10:26)
[2021-05-03] MEDS: PRENATAL VITAMINS W/ FOLIC ACID TABLET (FP) PO SCH (10:25)
[2021-05-03] MEDS: NICOTINE 7 MG/24 HOURS TOPICAL PATCH TD SCH (10:25)
[2021-05-03 17:40] LABS: EPI CELLS 20 /uL (0-25.1); HYALINE CASTS 1 /uL (0-3.1); PH,URINE 7.5 (5.0-8.0); URINE APPEARANCE CLEAR; URINE BACTERIA 262 /uL (0-1359); URINE BILIRUBIN NEGATIVE (NEGATIVE); URINE COLOR YELLOW; URINE GLUCOSE (UA) NEGATIVE (NEGATIVE); URINE KETONE NEGATIVE (NEGATIVE); URINE LEUK ESTERASE 3+ (NEGATIVE); URINE NITRITE NEGATIVE (NEGATIVE); URINE PROTEIN NEGATIVE (NEGATIVE); URINE RBC 4 /uL (0-23.9); URINE UROBILINOGEN 0.2 mg/dL (0.2-1.0); URINE WBC 331 /uL (0-25.8)
[2021-05-03] MEDS: OLANZapine 10 MG TABLET PO SCH (21:38)
[2021-05-03] MEDS: THIAMINE HCL 100 MG TABLET (FP) PO SCH (21:38)
[2021-05-03] MEDS: metroNIDAZOLE 0.75% VAGINAL GEL 70 GM TUBE VG SCH (21:39)
[2021-05-04] MEDS: PRENATAL VITAMINS W/ FOLIC ACID TABLET (FP) PO SCH (09:55)
[2021-05-04] MEDS: hydrOXYzine PAMOATE 25 MG CAPSULE (FP) PO PRN (09:56)
[2021-05-04] MEDS: NICOTINE 7 MG/24 HOURS TOPICAL PATCH TD SCH (09:56)
[2021-05-04] MEDS: NICOTINE 10 MG CARTRIDGE (INHALER) IH PRN ×2 (09:57→21:24)
[2021-05-04] MEDS: THIAMINE HCL 100 MG TABLET (FP) PO SCH (21:14)
[2021-05-04] MEDS: OLANZapine 10 MG TABLET PO SCH (21:14)
[2021-05-04] MEDS: metroNIDAZOLE 0.75% VAGINAL GEL 70 GM TUBE VG SCH (21:24)
[2021-05-05] MEDS: hydrOXYzine PAMOATE 25 MG CAPSULE (FP) PO PRN ×2 (09:44→21:15)
[2021-05-05] MEDS: PRENATAL VITAMINS W/ FOLIC ACID TABLET (FP) PO SCH (09:44)
[2021-05-05] MEDS: NICOTINE 7 MG/24 HOURS TOPICAL PATCH TD SCH (09:45)
[2021-05-05] MEDS: SUVOREXANT 10 MG TABLET PO PRN (21:14)
[2021-05-05] MEDS: metroNIDAZOLE 0.75% VAGINAL GEL 70 GM TUBE VG SCH (21:15)
[2021-05-05] MEDS: THIAMINE HCL 100 MG TABLET (FP) PO SCH (21:15)
[2021-05-05] MEDS: OLANZapine 10 MG TABLET PO SCH (21:15)
[2021-05-06] MEDS: PRENATAL VITAMINS W/ FOLIC ACID TABLET (FP) PO SCH (11:07)
[2021-05-06] MEDS: NICOTINE 7 MG/24 HOURS TOPICAL PATCH TD SCH (11:07)
[2021-05-06] MEDS: hydrOXYzine PAMOATE 25 MG CAPSULE (FP) PO PRN (21:05)
[2021-05-06] MEDS: THIAMINE HCL 100 MG TABLET (FP) PO SCH (21:05)
[2021-05-06] MEDS: metroNIDAZOLE 0.75% VAGINAL GEL 70 GM TUBE VG SCH (21:06)
[2021-05-06] MEDS: OLANZapine 5 MG TABLET PO SCH (22:35)
[2021-05-07] MEDS: PRENATAL VITAMINS W/ FOLIC ACID TABLET (FP) PO SCH (10:57)
[2021-05-07] MEDS: NICOTINE 7 MG/24 HOURS TOPICAL PATCH TD SCH (10:57)
[2021-05-07] MEDS: metroNIDAZOLE 0.75% VAGINAL GEL 70 GM TUBE VG SCH (21:20)
[2021-05-07] MEDS: THIAMINE HCL 100 MG TABLET (FP) PO SCH (21:21)
[2021-05-07] MEDS: SUVOREXANT 10 MG TABLET PO PRN (21:21)
[2021-05-07] MEDS: OLANZapine 5 MG TABLET PO SCH (21:21)
[2021-05-07] MEDS: hydrOXYzine PAMOATE 25 MG CAPSULE (FP) PO PRN (21:22)
[2021-05-08] MEDS: PRENATAL VITAMINS W/ FOLIC ACID TABLET (FP) PO SCH (11:07)
[2021-05-08] MEDS: NICOTINE 7 MG/24 HOURS TOPICAL PATCH TD SCH (11:08)
[2021-05-08] MEDS: hydrOXYzine PAMOATE 25 MG CAPSULE (FP) PO PRN (21:40)
[2021-05-08] MEDS: THIAMINE HCL 100 MG TABLET (FP) PO SCH (21:40)
[2021-05-08] MEDS: OLANZapine 5 MG TABLET PO SCH (21:40)
[2021-05-09] MEDS: NICOTINE 7 MG/24 HOURS TOPICAL PATCH TD SCH (10:47)
[2021-05-09] MEDS: PRENATAL VITAMINS W/ FOLIC ACID TABLET (FP) PO SCH (10:48)
[2021-05-09] MEDS: OLANZapine 5 MG TABLET PO SCH (22:02)
[2021-05-09] MEDS: hydrOXYzine PAMOATE 25 MG CAPSULE (FP) PO PRN (22:03)
[2021-05-09] MEDS: THIAMINE HCL 100 MG TABLET (FP) PO SCH (22:03)
[2021-05-10 07:26] VITALS: TEMP 97.7
[2021-05-10] MEDS: NICOTINE 7 MG/24 HOURS TOPICAL PATCH TD SCH (10:42)
[2021-05-10] MEDS: PRENATAL VITAMINS W/ FOLIC ACID TABLET (FP) PO SCH (10:42)
[2021-05-10] MEDS: THIAMINE HCL 100 MG TABLET (FP) PO SCH (21:17)
[2021-05-10] MEDS: hydrOXYzine PAMOATE 25 MG CAPSULE (FP) PO PRN (21:17)
[2021-05-10] MEDS: OLANZapine 5 MG TABLET PO SCH (21:17)
[2021-05-11 07:33] VITALS: BP 109/66; PULSE 79
[2021-05-11] MEDS: PRENATAL VITAMINS W/ FOLIC ACID TABLET (FP) PO SCH (09:41)
[2021-05-11] MEDS: NICOTINE 7 MG/24 HOURS TOPICAL PATCH TD SCH (09:41)
== END 2021-05-11 09:40 | disposition home or self-care (01) | DRG 772 ==
LOC: YASAS 14:31 → Y5N 14:32
PROVIDERS: ADMIT Allergy & Immunology; ATTEND Allergy & Immunology
PROC: HZ42ZZZ Group Counseling for Substance Abuse Treatment, Cognitive-Behavioral (ICD-10-PCS; principal; 2021-04-24)
DX: F10.20 Alcohol dependence, uncomplicated (principal); F14.20 Cocaine dependence, uncomplicated; F12.20 Cannabis dependence, uncomplicated; F17.210 Nicotine dependence, cigarettes, uncomplicated; F20.9 Schizophrenia, unspecified; F19.24 Other psychoactive substance dependence with psychoactive substance-induced mood disorder; F31.9 Bipolar disorder, unspecified; G47.00 Insomnia, unspecified; N89.8 Other specified noninflammatory disorders of vagina; Z86.19 Personal history of other infectious and parasitic diseases; Z56.0 Unemployment, unspecified; Z59.00 Homelessness unspecified; Z91.19 Patient's noncompliance with other medical treatment and regimen
CPT/HCPCS: 81003; 87086; C9803; U0003; U0005